=== PATIENT | female | born 1945 | race Caucasian/White ===

== ENCOUNTER 2019-05-19 14:57 | Inpatient (IN) ==
[2019-05-19] MEDS ORDERED: MOM Conc 10 ML UD.LIQ PO PRN (18:31)
[2019-05-19] MEDS ORDERED: Sennosides/Docusate Sodium TABLET PO PRN (18:31)
[2019-05-19] MEDS: Gabapentin 300 MG CAPSULE PO SCH (19:59)
[2019-05-19] MEDS: QUEtiapine Fumarate 100 MG TABLET PO SCH (19:59)
[2019-05-19] MEDS: *HR* LORazepam 0.5 MG TABLET PO PRN (19:59)
[2019-05-20 07:10] LABS: Alanine Aminotransferase 14 Units/L (7-52); Albumin 3.2 g/dL (3.5-5.7); Albumin/Globulin Ratio 1.2 (1.1-2.2); Alkaline Phosphatase 62 Units/L (34-104); Aspartate Amino Transferase 31 Units/L (13-39); BUN/Creatinine Ratio 22 (6-26); Bilirubin,Total 0.3 mg/dL (0.3-1.0); Blood Urea Nitrogen 20 mg/dL (8-23); Calcium 8.7 mg/dL (8.6-10.3); Carbon Dioxide 26 mEq/L (23-29); Chloride 105 mEq/L (98-107); Globulin 2.6 g/dL (2.4-3.5); Glucose 113 mg/dL (70-105); Osmolality,Calculated 297 (280-300); Potassium 3.6 mEq/L (3.5-5.1); Sodium 142 mEq/L (136-145); Total Protein 5.8 g/dL (6.4-8.9); eGFR For African Americans > 60 (> 60); eGFR For Non-African Americans > 60 (> 60)
[2019-05-20 07:22] LABS: Hematocrit 27.9 % (35.3-44.9); Hemoglobin 9.1 g/dL (11.5-15.4); Mean Corpuscular HGB Conc 32.6 g/dL (31.6-35.5); Mean Corpuscular Volume 88.9 fL (83.0-100.0); Mean Platelet Volume 10.5 fL (9.4-12.4); Platelet Count 143 K/mcL (140-400); Red Blood Count 3.14 M/mcL (3.82-4.97); Red Cell Distribution Width 13.2 % (11.5-14.5); White Blood Count 5.3 K/mcL (4.3-11.1)
[2019-05-20] MEDS: amLODIPine 5 MG TABLET PO SCH (08:33)
[2019-05-20] MEDS: Lisinopril 20 MG TABLET PO SCH (08:33)
[2019-05-20] MEDS: Gabapentin 300 MG CAPSULE PO SCH ×3 (08:34→20:40)
[2019-05-20] MEDS: Cholecalciferol (D-3) 1,000 UNIT (25MCG) TABLET PO SCH (08:34)
[2019-05-20] MEDS: Metoprolol XL (24 HR) Succ 50 MG TAB.ER.24H PO SCH (08:48)
[2019-05-20] MEDS ORDERED: Aspirin Enteric Coated 325 MG Tablet PO SCH (09:00)
[2019-05-20] MEDS: QUEtiapine Fumarate 100 MG TABLET PO SCH (20:39)
[2019-05-20] MEDS: *HR* LORazepam 0.5 MG TABLET PO PRN (20:39)
[2019-05-21] MEDS: *HR* Enoxaparin 40 MG/0.4 ML SYRINGE SQ SCH (06:31)
[2019-05-21] MEDS: Aspirin Enteric Coated 81 MG Tablet PO SCH (08:50)
[2019-05-21] MEDS: Metoprolol XL (24 HR) Succ 50 MG TAB.ER.24H PO SCH (08:50)
[2019-05-21] MEDS: Gabapentin 300 MG CAPSULE PO SCH ×3 (08:50→21:02)
[2019-05-21] MEDS: Cholecalciferol (D-3) 1,000 UNIT (25MCG) TABLET PO SCH (08:51)
[2019-05-21] MEDS: amLODIPine 5 MG TABLET PO SCH (08:51)
[2019-05-21] MEDS: Lisinopril 20 MG TABLET PO SCH (08:51)
[2019-05-21] MEDS: QUEtiapine Fumarate 100 MG TABLET PO SCH (21:02)
[2019-05-22] MEDS: *HR* Enoxaparin 40 MG/0.4 ML SYRINGE SQ SCH (05:21)
[2019-05-22] MEDS: Gabapentin 300 MG CAPSULE PO SCH ×4 (08:54→20:21)
[2019-05-22] MEDS: Metoprolol XL (24 HR) Succ 50 MG TAB.ER.24H PO SCH (08:54)
[2019-05-22] MEDS: Aspirin Enteric Coated 81 MG Tablet PO SCH (08:54)
[2019-05-22] MEDS: Cholecalciferol (D-3) 1,000 UNIT (25MCG) TABLET PO SCH (08:55)
[2019-05-22] MEDS: amLODIPine 5 MG TABLET PO SCH (09:57)
[2019-05-22] MEDS: Lisinopril 20 MG TABLET PO SCH (09:57)
[2019-05-23] MEDS: *HR* Enoxaparin 40 MG/0.4 ML SYRINGE SQ SCH (05:30)
[2019-05-23] MEDS: Aspirin Enteric Coated 81 MG Tablet PO SCH (08:51)
[2019-05-23] MEDS: amLODIPine 5 MG TABLET PO SCH (08:51)
[2019-05-23] MEDS: Cholecalciferol (D-3) 1,000 UNIT (25MCG) TABLET PO SCH (08:51)
[2019-05-23] MEDS: Lisinopril 20 MG TABLET PO SCH (08:52)
[2019-05-23] MEDS: Gabapentin 300 MG CAPSULE PO SCH ×3 (08:52→19:54)
[2019-05-23] MEDS: Metoprolol XL (24 HR) Succ 50 MG TAB.ER.24H PO SCH (08:52)
[2019-05-23] MEDS: *HR* LORazepam 0.5 MG TABLET PO PRN (14:10)
[2019-05-23 14:47] LABS: Bilirubin,Urine Negative (Negative); Blood,Urine Trace-intact (Negative); Clarity,Urine Clear (Clear); Color,Urine Yellow (Yellow); Glucose,Urine (UA) Normal (Normal); Ketones,Urine Negative (Negative); Leukocyte Esterase,Urine Negative (Negative); Nitrite,Urine Negative (Negative); Protein,Urine 100 mg/dL (Neg-Trace); Specific Gravity,Urine 1.025 (1.010-1.025); Urobilinogen,Urine Normal (Normal)
[2019-05-23 14:55] LABS: Squamous Epithelial Cell,Urine Few per lpf (None-Few); WBC,Urine 0-3 per hpf (0-3); Yeast,Urine Moderate per hpf (None Seen)
[2019-05-23] MEDS: QUEtiapine Fumarate 100 MG TABLET PO PRN (23:53)
[2019-05-24] MEDS: *HR* Enoxaparin 40 MG/0.4 ML SYRINGE SQ SCH (04:58)
[2019-05-24] MEDS: Metoprolol XL (24 HR) Succ 50 MG TAB.ER.24H PO SCH (09:26)
[2019-05-24] MEDS: Gabapentin 300 MG CAPSULE PO SCH ×3 (09:27→20:52)
[2019-05-24] MEDS: amLODIPine 5 MG TABLET PO SCH (09:28)
[2019-05-24] MEDS: Aspirin Enteric Coated 81 MG Tablet PO SCH (09:29)
[2019-05-24] MEDS: Cholecalciferol (D-3) 1,000 UNIT (25MCG) TABLET PO SCH (09:32)
[2019-05-24] MEDS: Lisinopril 20 MG TABLET PO SCH (09:33)
[2019-05-25] MEDS: QUEtiapine Fumarate 100 MG TABLET PO PRN ×2 (01:05→23:27)
[2019-05-25 02:18] LABS: Bilirubin,Urine Negative (Negative); Blood,Urine Negative (Negative); Clarity,Urine Clear (Clear); Color,Urine Yellow (Yellow); Glucose,Urine (UA) Normal (Normal); Ketones,Urine Negative (Negative); Leukocyte Esterase,Urine Negative (Negative); Nitrite,Urine Negative (Negative); PH,Urine 5.5 pH Units (5.0-8.0); Protein,Urine 30 mg/dL (Neg-Trace); Urobilinogen,Urine Normal (Normal)
[2019-05-25 02:27] LABS: Squamous Epithelial Cell,Urine Many per lpf (None-Few); Yeast,Urine Many per hpf (None Seen)
[2019-05-25] MEDS: *HR* Enoxaparin 40 MG/0.4 ML SYRINGE SQ SCH (05:28)
[2019-05-25] MEDS: Aspirin Enteric Coated 81 MG Tablet PO SCH (10:26)
[2019-05-25] MEDS: Gabapentin 300 MG CAPSULE PO SCH ×3 (10:26→20:18)
[2019-05-25] MEDS: amLODIPine 5 MG TABLET PO SCH (10:27)
[2019-05-25] MEDS: Lisinopril 20 MG TABLET PO SCH (10:28)
[2019-05-25] MEDS: Metoprolol XL (24 HR) Succ 50 MG TAB.ER.24H PO SCH (10:28)
[2019-05-25] MEDS: Cholecalciferol (D-3) 1,000 UNIT (25MCG) TABLET PO SCH (10:28)
[2019-05-25] MEDS ORDERED: Fluconazole 100 MG TABLET PO ONE (17:52)
[2019-05-25] MEDS: *HR* LORazepam 0.5 MG TABLET PO PRN (20:18)
[2019-05-26] MEDS: *HR* Enoxaparin 40 MG/0.4 ML SYRINGE SQ SCH (05:05)
[2019-05-26] MEDS: amLODIPine 5 MG TABLET PO SCH (07:51)
[2019-05-26] MEDS: Metoprolol XL (24 HR) Succ 50 MG TAB.ER.24H PO SCH ×2 (07:51→09:58)
[2019-05-26] MEDS: Lisinopril 20 MG TABLET PO SCH (07:52)
[2019-05-26] MEDS: Gabapentin 300 MG CAPSULE PO SCH ×3 (09:50→20:10)
[2019-05-26] MEDS: Aspirin Enteric Coated 81 MG Tablet PO SCH (09:50)
[2019-05-26] MEDS: Cholecalciferol (D-3) 1,000 UNIT (25MCG) TABLET PO SCH (09:50)
[2019-05-27] MEDS: *HR* Enoxaparin 40 MG/0.4 ML SYRINGE SQ SCH (06:46)
[2019-05-27] MEDS: amLODIPine 5 MG TABLET PO SCH (09:07)
[2019-05-27] MEDS: Lisinopril 20 MG TABLET PO SCH (09:07)
[2019-05-27] MEDS: Metoprolol XL (24 HR) Succ 50 MG TAB.ER.24H PO SCH (09:07)
[2019-05-27] MEDS: Aspirin Enteric Coated 81 MG Tablet PO SCH (09:07)
[2019-05-27] MEDS: Cholecalciferol (D-3) 1,000 UNIT (25MCG) TABLET PO SCH (09:08)
[2019-05-27] MEDS: Gabapentin 300 MG CAPSULE PO SCH ×3 (09:08→20:25)
[2019-05-27 12:40] LABS: Hematocrit 28.1 % (35.3-44.9); Hemoglobin 9.1 g/dL (11.5-15.4); Mean Corpuscular HGB Conc 32.4 g/dL (31.6-35.5); Mean Corpuscular Hemoglobin 28.5 pg (28.0-33.3); Mean Corpuscular Volume 88.1 fL (83.0-100.0); Mean Platelet Volume 10.4 fL (9.4-12.4); Platelet Count 360 K/mcL (140-400); Red Blood Count 3.19 M/mcL (3.82-4.97); Red Cell Distribution Width 13.5 % (11.5-14.5); White Blood Count 7.6 K/mcL (4.3-11.1)
[2019-05-27 12:52] LABS: BUN/Creatinine Ratio 14 (6-26); Blood Urea Nitrogen 12 mg/dL (8-23); Calcium 8.1 mg/dL (8.6-10.3); Carbon Dioxide 27 mEq/L (23-29); Chloride 97 mEq/L (98-107); Glucose 145 mg/dL (70-105); Osmolality,Calculated 282 (280-300); Potassium 3.1 mEq/L (3.5-5.1); Sodium 135 mEq/L (136-145); eGFR For African Americans > 60 (> 60); eGFR For Non-African Americans > 60 (> 60)
[2019-05-27] MEDS: *HR* OxyCODONE Immed Rel 15 MG TABLET PO PRN (20:32)
[2019-05-28] MEDS: *HR* Enoxaparin 40 MG/0.4 ML SYRINGE SQ SCH (05:26)
[2019-05-28 06:23] LABS: Hematocrit 27.5 % (35.3-44.9); Hemoglobin 8.7 g/dL (11.5-15.4); Mean Corpuscular HGB Conc 31.6 g/dL (31.6-35.5); Mean Corpuscular Hemoglobin 28.3 pg (28.0-33.3); Mean Corpuscular Volume 89.6 fL (83.0-100.0); Mean Platelet Volume 10.4 fL (9.4-12.4); Platelet Count 323 K/mcL (140-400); Red Blood Count 3.07 M/mcL (3.82-4.97); Red Cell Distribution Width 13.6 % (11.5-14.5); White Blood Count 6.4 K/mcL (4.3-11.1)
[2019-05-28 06:49] LABS: BUN/Creatinine Ratio 16 (6-26); Blood Urea Nitrogen 13 mg/dL (8-23); Calcium 8.1 mg/dL (8.6-10.3); Carbon Dioxide 29 mEq/L (23-29); Chloride 103 mEq/L (98-107); Glucose 107 mg/dL (70-105); Osmolality,Calculated 289 (280-300); Potassium 3.7 mEq/L (3.5-5.1); Sodium 139 mEq/L (136-145); eGFR For African Americans > 60 (> 60); eGFR For Non-African Americans > 60 (> 60)
[2019-05-28] MEDS: amLODIPine 5 MG TABLET PO SCH (09:05)
[2019-05-28] MEDS: Metoprolol XL (24 HR) Succ 50 MG TAB.ER.24H PO SCH (09:06)
[2019-05-28] MEDS: Cholecalciferol (D-3) 1,000 UNIT (25MCG) TABLET PO SCH (09:06)
[2019-05-28] MEDS: Lisinopril 20 MG TABLET PO SCH (09:06)
[2019-05-28] MEDS: Aspirin Enteric Coated 81 MG Tablet PO SCH (09:07)
[2019-05-28] MEDS: Gabapentin 300 MG CAPSULE PO SCH ×3 (09:07→20:08)
[2019-05-28] MEDS: *HR* LORazepam 0.5 MG TABLET PO PRN (13:39)
[2019-05-28] MEDS: *HR* OxyCODONE Immed Rel 15 MG TABLET PO PRN (20:08)
[2019-05-29] MEDS: *HR* Enoxaparin 40 MG/0.4 ML SYRINGE SQ SCH (05:43)
[2019-05-29] MEDS: Gabapentin 300 MG CAPSULE PO SCH ×3 (08:16→21:44)
[2019-05-29] MEDS: Metoprolol XL (24 HR) Succ 50 MG TAB.ER.24H PO SCH (08:16)
[2019-05-29] MEDS: Lisinopril 20 MG TABLET PO SCH (08:17)
[2019-05-29] MEDS: *HR* OxyCODONE Immed Rel 15 MG TABLET PO PRN (08:18)
[2019-05-29] MEDS: Aspirin Enteric Coated 81 MG Tablet PO SCH (08:19)
[2019-05-29] MEDS: amLODIPine 5 MG TABLET PO SCH (08:19)
[2019-05-29] MEDS: Cholecalciferol (D-3) 1,000 UNIT (25MCG) TABLET PO SCH (08:20)
[2019-05-29] MEDS ORDERED: Simethicone 80 MG TAB.CHEW PO ONE (20:06)
[2019-05-30] MEDS: QUEtiapine Fumarate 100 MG TABLET PO PRN ×2 (00:52→23:22)
[2019-05-30] MEDS: *HR* Enoxaparin 40 MG/0.4 ML SYRINGE SQ SCH (05:57)
[2019-05-30] MEDS: Gabapentin 300 MG CAPSULE PO SCH ×3 (08:38→21:39)
[2019-05-30] MEDS: Metoprolol XL (24 HR) Succ 50 MG TAB.ER.24H PO SCH (08:39)
[2019-05-30] MEDS: amLODIPine 5 MG TABLET PO SCH (08:39)
[2019-05-30] MEDS: Lisinopril 20 MG TABLET PO SCH (08:39)
[2019-05-30] MEDS: Aspirin Enteric Coated 81 MG Tablet PO SCH (08:39)
[2019-05-30] MEDS: Cholecalciferol (D-3) 1,000 UNIT (25MCG) TABLET PO SCH (08:39)
[2019-05-31] MEDS: *HR* Enoxaparin 40 MG/0.4 ML SYRINGE SQ SCH (05:53)
[2019-05-31] MEDS: Metoprolol XL (24 HR) Succ 50 MG TAB.ER.24H PO SCH (08:40)
[2019-05-31] MEDS: Aspirin Enteric Coated 81 MG Tablet PO SCH (08:40)
[2019-05-31] MEDS: Cholecalciferol (D-3) 1,000 UNIT (25MCG) TABLET PO SCH (08:40)
[2019-05-31] MEDS: Gabapentin 300 MG CAPSULE PO SCH ×3 (08:41→21:06)
[2019-05-31] MEDS: amLODIPine 5 MG TABLET PO SCH (08:41)
[2019-05-31] MEDS: Lisinopril 20 MG TABLET PO SCH (08:41)
[2019-06-01] MEDS: *HR* Enoxaparin 40 MG/0.4 ML SYRINGE SQ SCH (05:39)
[2019-06-01] MEDS: Metoprolol XL (24 HR) Succ 50 MG TAB.ER.24H PO SCH (09:09)
[2019-06-01] MEDS: Aspirin Enteric Coated 81 MG Tablet PO SCH (09:09)
[2019-06-01] MEDS: Lisinopril 20 MG TABLET PO SCH (09:09)
[2019-06-01] MEDS: amLODIPine 5 MG TABLET PO SCH (09:09)
[2019-06-01] MEDS: Cholecalciferol (D-3) 1,000 UNIT (25MCG) TABLET PO SCH (09:09)
[2019-06-01] MEDS: Gabapentin 300 MG CAPSULE PO SCH ×3 (09:09→20:27)
[2019-06-01] MEDS: QUEtiapine Fumarate 100 MG TABLET PO PRN (21:20)
[2019-06-02] MEDS: *HR* Enoxaparin 40 MG/0.4 ML SYRINGE SQ SCH (05:21)
[2019-06-02 06:38] LABS: Hematocrit 26.4 % (35.3-44.9); Hemoglobin 8.2 g/dL (11.5-15.4); Mean Corpuscular HGB Conc 31.1 g/dL (31.6-35.5); Mean Corpuscular Hemoglobin 27.4 pg (28.0-33.3); Mean Corpuscular Volume 88.3 fL (83.0-100.0); Mean Platelet Volume 9.8 fL (9.4-12.4); Platelet Count 302 K/mcL (140-400); Red Blood Count 2.99 M/mcL (3.82-4.97); Red Cell Distribution Width 14.2 % (11.5-14.5); White Blood Count 4.7 K/mcL (4.3-11.1)
[2019-06-02 06:56] LABS: BUN/Creatinine Ratio 12 (6-26); Blood Urea Nitrogen 12 mg/dL (8-23); Calcium 8.9 mg/dL (8.6-10.3); Carbon Dioxide 27 mEq/L (23-29); Chloride 102 mEq/L (98-107); Glucose 100 mg/dL (70-105); Osmolality,Calculated 282 (280-300); Potassium 4.2 mEq/L (3.5-5.1); Sodium 136 mEq/L (136-145); eGFR For African Americans > 60 (> 60); eGFR For Non-African Americans 53 (> 60)
[2019-06-02] MEDS: Metoprolol XL (24 HR) Succ 50 MG TAB.ER.24H PO SCH (07:36)
[2019-06-02] MEDS: Lisinopril 20 MG TABLET PO SCH (07:36)
[2019-06-02] MEDS: Gabapentin 300 MG CAPSULE PO SCH ×3 (08:39→20:51)
[2019-06-02] MEDS: Aspirin Enteric Coated 81 MG Tablet PO SCH (08:39)
[2019-06-02] MEDS: Cholecalciferol (D-3) 1,000 UNIT (25MCG) TABLET PO SCH (08:39)
[2019-06-02] MEDS: *HR* OxyCODONE Immed Rel 15 MG TABLET PO PRN (20:51)
[2019-06-03] MEDS: *HR* Enoxaparin 40 MG/0.4 ML SYRINGE SQ SCH (05:43)
[2019-06-03] MEDS: *HR* OxyCODONE Immed Rel 15 MG TABLET PO PRN (05:44)
[2019-06-03] MEDS: Aspirin Enteric Coated 81 MG Tablet PO SCH (08:40)
[2019-06-03] MEDS: Gabapentin 300 MG CAPSULE PO SCH ×3 (08:41→20:08)
[2019-06-03] MEDS: Cholecalciferol (D-3) 1,000 UNIT (25MCG) TABLET PO SCH (08:41)
[2019-06-03] MEDS: Metoprolol XL (24 HR) Succ 50 MG TAB.ER.24H PO SCH (08:41)
[2019-06-03] MEDS: Lisinopril 20 MG TABLET PO SCH (08:43)
[2019-06-04] MEDS: QUEtiapine Fumarate 100 MG TABLET PO PRN (02:52)
[2019-06-04] MEDS: *HR* Enoxaparin 40 MG/0.4 ML SYRINGE SQ SCH (06:25)
[2019-06-04] MEDS ORDERED: 0.9 % Sodium Chloride 500 ML IV ONE (07:37)
[2019-06-04] MEDS: Gabapentin 300 MG CAPSULE PO SCH ×3 (08:25→20:27)
[2019-06-04] MEDS: Aspirin Enteric Coated 81 MG Tablet PO SCH (08:25)
[2019-06-04] MEDS: Cholecalciferol (D-3) 1,000 UNIT (25MCG) TABLET PO SCH (08:26)
[2019-06-04] MEDS: Lisinopril 20 MG TABLET PO SCH (12:12)
[2019-06-04] MEDS ORDERED: 0.9 % Sodium Chloride 1,000 ML IVC SCH (14:00)
[2019-06-04] MEDS: Metoprolol XL (24 HR) Succ 50 MG TAB.ER.24H PO SCH (14:40)
[2019-06-05] MEDS: QUEtiapine Fumarate 100 MG TABLET PO PRN (04:11)
[2019-06-05] MEDS: *HR* Enoxaparin 40 MG/0.4 ML SYRINGE SQ SCH (05:43)
[2019-06-05] MEDS: Metoprolol XL (24 HR) Succ 50 MG TAB.ER.24H PO SCH (08:39)
[2019-06-05] MEDS: Aspirin Enteric Coated 81 MG Tablet PO SCH (08:39)
[2019-06-05] MEDS: Lisinopril 20 MG TABLET PO SCH (08:40)
[2019-06-05] MEDS: Gabapentin 300 MG CAPSULE PO SCH ×3 (08:40→21:18)
[2019-06-05] MEDS: Cholecalciferol (D-3) 1,000 UNIT (25MCG) TABLET PO SCH (08:40)
[2019-06-06] MEDS: *HR* Enoxaparin 40 MG/0.4 ML SYRINGE SQ SCH (06:39)
[2019-06-06] MEDS: Cholecalciferol (D-3) 1,000 UNIT (25MCG) TABLET PO SCH (08:26)
[2019-06-06] MEDS: Metoprolol XL (24 HR) Succ 50 MG TAB.ER.24H PO SCH (08:26)
[2019-06-06] MEDS: Lisinopril 20 MG TABLET PO SCH (08:27)
[2019-06-06] MEDS: Gabapentin 300 MG CAPSULE PO SCH ×3 (08:27→20:09)
[2019-06-06] MEDS: Aspirin Enteric Coated 81 MG Tablet PO SCH (08:27)
[2019-06-07] MEDS: *HR* Enoxaparin 40 MG/0.4 ML SYRINGE SQ SCH (06:00)
[2019-06-07 07:59] LABS: Hematocrit 24.9 % (35.3-44.9); Hemoglobin 7.8 g/dL (11.5-15.4); Mean Corpuscular HGB Conc 31.3 g/dL (31.6-35.5); Mean Corpuscular Hemoglobin 27.4 pg (28.0-33.3); Mean Corpuscular Volume 87.4 fL (83.0-100.0); Platelet Count 239 K/mcL (140-400); Red Blood Count 2.85 M/mcL (3.82-4.97); Red Cell Distribution Width 15.3 % (11.5-14.5); White Blood Count 4.7 K/mcL (4.3-11.1)
[2019-06-07 08:18] LABS: BUN/Creatinine Ratio 17 (6-26); Blood Urea Nitrogen 14 mg/dL (8-23); Calcium 8.5 mg/dL (8.6-10.3); Carbon Dioxide 22 mEq/L (23-29); Chloride 105 mEq/L (98-107); Glucose 161 mg/dL (70-105); Osmolality,Calculated 284 (280-300); Sodium 135 mEq/L (136-145); eGFR For African Americans > 60 (> 60); eGFR For Non-African Americans > 60 (> 60)
[2019-06-07] MEDS: Metoprolol XL (24 HR) Succ 50 MG TAB.ER.24H PO SCH (09:29)
[2019-06-07] MEDS: Aspirin Enteric Coated 81 MG Tablet PO SCH (09:29)
[2019-06-07] MEDS: Gabapentin 300 MG CAPSULE PO SCH ×3 (09:29→20:58)
[2019-06-07] MEDS: Cholecalciferol (D-3) 1,000 UNIT (25MCG) TABLET PO SCH (09:29)
[2019-06-07] MEDS: QUEtiapine Fumarate 100 MG TABLET PO PRN (20:58)
[2019-06-08] MEDS: *HR* Enoxaparin 40 MG/0.4 ML SYRINGE SQ SCH (05:23)
[2019-06-08] MEDS: Cholecalciferol (D-3) 1,000 UNIT (25MCG) TABLET PO SCH (09:51)
[2019-06-08] MEDS: Gabapentin 300 MG CAPSULE PO SCH ×3 (09:51→20:12)
[2019-06-08] MEDS: Metoprolol XL (24 HR) Succ 50 MG TAB.ER.24H PO SCH (09:51)
[2019-06-08] MEDS: Aspirin Enteric Coated 81 MG Tablet PO SCH (09:51)
[2019-06-08 10:16] LABS: Hematocrit 27.4 % (35.3-44.9); Hemoglobin 8.5 g/dL (11.5-15.4); Mean Corpuscular Hemoglobin 27.8 pg (28.0-33.3); Mean Corpuscular Volume 89.5 fL (83.0-100.0); Mean Platelet Volume 10.1 fL (9.4-12.4); Platelet Count 263 K/mcL (140-400); Red Blood Count 3.06 M/mcL (3.82-4.97); Red Cell Distribution Width 15.5 % (11.5-14.5); White Blood Count 4.8 K/mcL (4.3-11.1)
[2019-06-08 10:56] LABS: BUN/Creatinine Ratio 13 (6-26); Blood Urea Nitrogen 13 mg/dL (8-23); Calcium 9.1 mg/dL (8.6-10.3); Carbon Dioxide 23 mEq/L (23-29); Chloride 106 mEq/L (98-107); Glucose 267 mg/dL (70-105); Osmolality,Calculated 295 (280-300); Potassium 4.7 mEq/L (3.5-5.1); Sodium 138 mEq/L (136-145); eGFR For African Americans > 60 (> 60); eGFR For Non-African Americans 57 (> 60)
[2019-06-08] MEDS: QUEtiapine Fumarate 100 MG TABLET PO PRN (20:12)
[2019-06-09] MEDS: *HR* Enoxaparin 40 MG/0.4 ML SYRINGE SQ SCH (05:23)
[2019-06-09 06:24] LABS: Hematocrit 22.9 % (35.3-44.9); Hemoglobin 7.5 g/dL (11.5-15.4); Mean Corpuscular HGB Conc 32.8 g/dL (31.6-35.5); Mean Corpuscular Hemoglobin 29.8 pg (28.0-33.3); Mean Corpuscular Volume 90.9 fL (83.0-100.0); Mean Platelet Volume 10.5 fL (9.4-12.4); Platelet Count 239 K/mcL (140-400); Red Blood Count 2.52 M/mcL (3.82-4.97); Red Cell Distribution Width 15.1 % (11.5-14.5); White Blood Count 4.7 K/mcL (4.3-11.1)
[2019-06-09] MEDS: Aspirin Enteric Coated 81 MG Tablet PO SCH (09:02)
[2019-06-09] MEDS: Gabapentin 300 MG CAPSULE PO SCH ×3 (09:02→20:42)
[2019-06-09] MEDS: Metoprolol XL (24 HR) Succ 50 MG TAB.ER.24H PO SCH (09:03)
[2019-06-09] MEDS: Cholecalciferol (D-3) 1,000 UNIT (25MCG) TABLET PO SCH (09:03)
[2019-06-09 11:41] LABS: % Iron Saturation 11 % (15-50); Iron 33 mcg/dL (50-170); Transferrin 205 mg/dL (203-362)
[2019-06-09] MEDS: QUEtiapine Fumarate 100 MG TABLET PO PRN (20:42)
[2019-06-10] MEDS: *HR* Enoxaparin 40 MG/0.4 ML SYRINGE SQ SCH (06:21)
[2019-06-10 10:14] VITALS: BP 100/56
[2019-06-10] MEDS: Metoprolol XL (24 HR) Succ 50 MG TAB.ER.24H PO SCH (10:23)
[2019-06-10] MEDS: Aspirin Enteric Coated 81 MG Tablet PO SCH (10:23)
[2019-06-10] MEDS: Gabapentin 300 MG CAPSULE PO SCH (10:23)
[2019-06-10] MEDS: Cholecalciferol (D-3) 1,000 UNIT (25MCG) TABLET PO SCH (10:23)
[2019-06-10 10:42] LABS: Hematocrit 24.7 % (35.3-44.9); Hemoglobin 7.8 g/dL (11.5-15.4); Mean Corpuscular HGB Conc 31.6 g/dL (31.6-35.5); Mean Corpuscular Hemoglobin 28.3 pg (28.0-33.3); Mean Corpuscular Volume 89.5 fL (83.0-100.0); Mean Platelet Volume 10.5 fL (9.4-12.4); Platelet Count 254 K/mcL (140-400); Red Blood Count 2.76 M/mcL (3.82-4.97); Red Cell Distribution Width 15.7 % (11.5-14.5); White Blood Count 5.7 K/mcL (4.3-11.1)
== END 2019-06-10 13:00 | disposition home health service (06) | DRG 560 ==
LOC: INPPIK 18:39
PROVIDERS: ADMIT Family Medicine; ATTEND Family Medicine

== ENCOUNTER 2021-07-26 06:16 | Inpatient (IN) ==
[2021-07-26 07:29] LABS: ABG Base Excess -1 mEq/L (-2 to 3); ABG HCO3 23 mEq/L (21-27); ABG Oxygen Saturation 92 % (95-98); ABG PCO2 33 mmHg (35-45); ABG PH 7.45 pH Units (7.32-7.45); ABG PO2 59 mmHg (85-104); ABG TCO2 24 mEq/L (20-26)
[2021-07-26 07:49] LABS: Basophils # 0.1 K/mcL (0.0-0.2); Basophils % 0.7 %; Eosinophils # 0.1 K/mcL (0.0-0.6); Eosinophils % 1.1 %; Hematocrit 39.3 % (35.3-44.9); Hemoglobin 12.7 g/dL (11.5-15.4); Immature Granulocytes % 1.3 % (0-4); Lymphocytes # 2.9 K/mcL (0.6-4.6); Mean Corpuscular HGB Conc 32.3 g/dL (31.6-35.5); Mean Corpuscular Hemoglobin 27.5 pg (28.0-33.3); Mean Corpuscular Volume 85.2 fL (83.0-100.0); Mean Platelet Volume 10.2 fL (9.4-12.4); Monocytes # 0.6 K/mcL (0.0-1.3); Monocytes % 7.1 %; Platelet Count 336 K/mcL (140-400); Red Blood Count 4.61 M/mcL (3.82-4.97); Red Cell Distribution Width 13.7 % (11.5-14.5); Segmented Neutrophils % 56.8 %; White Blood Count 8.8 K/mcL (4.3-11.1)
[2021-07-26 07:56] LABS: INR 1.1; Prothrombin Time 11.8 Seconds (9.4-12.1)
[2021-07-26 07:59] LABS: Activated Partial Thrombo Time 45.8 Seconds (26.0-36.0)
[2021-07-26 08:07] LABS: Troponin I < 0.03 ng/mL (< 0.04)
[2021-07-26 08:08] LABS: Alanine Aminotransferase 22 Units/L (7-52); Albumin 4.2 g/dL (3.5-5.7); Albumin/Globulin Ratio 1.2 (1.1-2.2); Alkaline Phosphatase 88 Units/L (34-104); Aspartate Amino Transferase 19 Units/L (13-39); BUN/Creatinine Ratio 22 (6-26); Bilirubin,Direct 0.1 mg/dL (0.0-0.2); Bilirubin,Indirect 0.4 mg/dL (0.0-1.0); Bilirubin,Total 0.5 mg/dL (0.3-1.0); Blood Urea Nitrogen 19 mg/dL (8-23); Calcium 9.9 mg/dL (8.6-10.3); Carbon Dioxide 24 mEq/L (23-29); Chloride 103 mEq/L (98-107); Ethanol < 10 mg/dL (Less than 10); Globulin 3.6 g/dL (2.4-3.5); Glucose 86 mg/dL (70-105); Osmolality,Calculated 288 (280-300); Potassium 3.8 mEq/L (3.5-5.1); Sodium 138 mEq/L (136-145); Total Protein 7.8 g/dL (6.4-8.9); eGFR For African Americans > 60 (> 60); eGFR For Non-African Americans > 60 (> 60)
[2021-07-26 08:09] LABS: Bilirubin,Urine Negative (Negative); Blood,Urine Trace-intact (Negative); Clarity,Urine Slightly Cloudy (Clear); Glucose,Urine (UA) Normal (Normal); Ketones,Urine Negative (Negative); Leukocyte Esterase,Urine Negative (Negative); Nitrite,Urine Positive (Negative); Protein,Urine Negative (Neg-Trace); Specific Gravity,Urine 1.015 (1.010-1.025); Urobilinogen,Urine Normal (Normal)
[2021-07-26 08:10] LABS: Color,Urine Light Yellow (Yellow)
[2021-07-26 08:15] LABS: Bacteria,Urine Many per hpf (None-Few); RBC,Urine 0-3 per hpf (0-3); Renal Epithelial Cells,Urine Few per hpf (None-Few); Squamous Epithelial Cell,Urine None Seen per hpf (None-Few); WBC,Urine 0-3 per hpf (0-3)
[2021-07-26 08:22] LABS: Amphetamine Screen,Urine Negative ng/mL (Cutoff=1000); Barbiturate Screen,Urine Negative ng/mL (Cutoff=200); Benzodiazepines Screen,Urine Negative ng/mL (Cutoff=200); Cannabinoid Screen,Urine Negative ng/mL (Cutoff = 50); Cocaine Screen,Urine Negative ng/mL (Cutoff= 300); Opiate Screen,Urine Negative ng/mL (Cutoff=300); Phencyclidine Screen,Urine Negative ng/mL (Cutoff=25)
[2021-07-26] MEDS ORDERED: cefTRIAXone 1,000 MG in 0.9 % Sodium Chloride 10 ML IVP ONE (08:42)
[2021-07-26] MEDS ORDERED: Acetaminophen 325 MG TABLET PO PRN (08:52)
[2021-07-26] MEDS ORDERED: Ondansetron 4 MG/2 ML VIAL IVP PRN (08:52)
[2021-07-26] MEDS ORDERED: Naloxone 0.4 MG/ML INJ IVP PRN (08:52)
[2021-07-26] MEDS ORDERED: 0.9 % Sodium Chloride w KCl 20 MEQ/1,000 ML MLS IVC SCH (09:00)
[2021-07-26] MEDS ORDERED: MOM Conc 10 ML UD.LIQ PO PRN (11:18)
[2021-07-26] MEDS ORDERED: Sennosides/Docusate Sodium TABLET PO PRN (11:18)
[2021-07-26] MEDS ORDERED: D5% in Water 1,000 ML IVC PRN (11:31)
[2021-07-26] MEDS ORDERED: *HR* Dextrose 50 % in Water (Syg) 50 ML SYRINGE IVP PRN (11:31)
[2021-07-26] MEDS ORDERED: Dextrose 4 GM Chewable Tablets PO PRN ×2 (11:31)
[2021-07-26] MEDS: Baclofen 10 MG TABLET PO SCH ×2 (16:40→20:19)
[2021-07-26] MEDS: Gabapentin 300 MG CAPSULE PO SCH ×2 (16:40→20:19)
[2021-07-26] MEDS: Insulin LISPRO 300 UNITS/3 ML VIAL SUBQ SCH (16:40)
[2021-07-26] MEDS: QUEtiapine Fumarate 100 MG TABLET PO SCH (20:19)
[2021-07-26] MEDS: *HR* LORazepam 0.5 MG TABLET PO PRN (20:23)
[2021-07-27 06:54] LABS: Hemoglobin 12.2 g/dL (11.5-15.4); Mean Corpuscular HGB Conc 32.1 g/dL (31.6-35.5); Mean Corpuscular Hemoglobin 27.5 pg (28.0-33.3); Mean Corpuscular Volume 85.8 fL (83.0-100.0); Mean Platelet Volume 10.1 fL (9.4-12.4); Platelet Count 293 K/mcL (140-400); Red Blood Count 4.43 M/mcL (3.82-4.97); Red Cell Distribution Width 13.5 % (11.5-14.5); White Blood Count 8.9 K/mcL (4.3-11.1)
[2021-07-27 07:26] LABS: BUN/Creatinine Ratio 22 (6-26); Blood Urea Nitrogen 20 mg/dL (8-23); Calcium 9.4 mg/dL (8.6-10.3); Carbon Dioxide 23 mEq/L (23-29); Chloride 106 mEq/L (98-107); Glucose 111 mg/dL (70-105); Osmolality,Calculated 291 (280-300); Potassium 4.1 mEq/L (3.5-5.1); Sodium 139 mEq/L (136-145); eGFR For African Americans > 60 (> 60); eGFR For Non-African Americans 60 (> 60)
[2021-07-27] MEDS: Insulin LISPRO 300 UNITS/3 ML VIAL SUBQ SCH ×3 (07:42→16:30)
[2021-07-27] MEDS: Gabapentin 300 MG CAPSULE PO SCH ×3 (09:04→20:33)
[2021-07-27] MEDS: predniSONE 20 MG TABLET PO SCH (09:04)
[2021-07-27] MEDS: Metoprolol XL (24 HR) Succ 50 MG TAB.ER.24H PO SCH (09:04)
[2021-07-27] MEDS: *HR* LORazepam 0.5 MG TABLET PO PRN (09:04)
[2021-07-27] MEDS: amLODIPine 5 MG TABLET PO SCH (09:05)
[2021-07-27] MEDS: lisinopriL 20 MG TABLET PO SCH (09:05)
[2021-07-27] MEDS: cefTRIAXone 2,000 MG in 0.9 % Sodium Chloride Mini Bag 100 ML IVPB SCH (09:05)
[2021-07-27] MEDS: Baclofen 10 MG TABLET PO SCH ×3 (09:05→20:38)
[2021-07-27] MEDS ORDERED: CefTRIAXone 2,000 MG VIAL ONE (18:53)
[2021-07-27] MEDS: QUEtiapine Fumarate 100 MG TABLET PO SCH (20:33)
[2021-07-28 05:24] VITALS: RESP 18
[2021-07-28] MEDS ORDERED: *HR* Enoxaparin 40 MG/0.4 ML SYRINGE SQ SCH (06:00)
[2021-07-28 07:04] VITALS: BP 128/67; PULSE 93; TEMP 98.3; O2SAT 92
[2021-07-28] MEDS: amLODIPine 5 MG TABLET PO SCH (07:44)
[2021-07-28] MEDS: Baclofen 10 MG TABLET PO SCH (07:45)
[2021-07-28] MEDS: lisinopriL 20 MG TABLET PO SCH (07:45)
[2021-07-28] MEDS: *HR* LORazepam 0.5 MG TABLET PO PRN (07:45)
[2021-07-28] MEDS: cefTRIAXone 2,000 MG in 0.9 % Sodium Chloride Mini Bag 100 ML IVPB SCH (07:45)
[2021-07-28] MEDS: Metoprolol XL (24 HR) Succ 50 MG TAB.ER.24H PO SCH (07:45)
[2021-07-28] MEDS: predniSONE 20 MG TABLET PO SCH (07:45)
[2021-07-28] MEDS: Gabapentin 300 MG CAPSULE PO SCH (07:45)
[2021-07-28] MEDS: Insulin LISPRO 300 UNITS/3 ML VIAL SUBQ SCH (07:46)
== END 2021-07-28 10:34 | disposition home health service (06) | DRG 689 ==
LOC: INPPIK 06:16 → EMEROOPIK 06:16 → INPPIK 10:37
PROVIDERS: ADMIT Internal Medicine; ATTEND Internal Medicine

== ENCOUNTER 2021-08-04 21:40 | Inpatient (IN) ==
[2021-08-04] MEDS: *HR* Dextrose 50 % in Water (Syg) 50 ML SYRINGE IVP ONE (21:59)
[2021-08-04 22:03] LABS: Basophils # 0.1 K/mcL (0.0-0.2); Basophils % 0.5 %; Eosinophils % 0.3 %; Hematocrit 42.2 % (35.3-44.9); Hemoglobin 13.5 g/dL (11.5-15.4); Immature Granulocytes % 0.5 % (0-4); Lymphocytes # 1.8 K/mcL (0.6-4.6); Lymphocytes % 14.3 %; Mean Corpuscular Hemoglobin 27.5 pg (28.0-33.3); Mean Corpuscular Volume 85.9 fL (83.0-100.0); Mean Platelet Volume 11.2 fL (9.4-12.4); Monocytes # 0.4 K/mcL (0.0-1.3); Monocytes % 3.5 %; Platelet Count 338 K/mcL (140-400); Red Blood Count 4.91 M/mcL (3.82-4.97); Red Cell Distribution Width 13.9 % (11.5-14.5); Segmented Neutrophils % 80.9 %; White Blood Count 12.4 K/mcL (4.3-11.1)
[2021-08-04 22:11] LABS: Prothrombin Time 11.1 Seconds (9.4-12.1)
[2021-08-04 22:14] LABS: Activated Partial Thrombo Time 41.6 Seconds (26.0-36.0)
[2021-08-04 22:16] LABS: VBG HCO3 23 mEq/L (21-27); VBG PCO2 36 mmHg (41-51); VBG PO2 43 mmHg (25-50)
[2021-08-04 22:19] LABS: Alanine Aminotransferase 25 Units/L (7-52); Albumin 4.6 g/dL (3.5-5.7); Albumin/Globulin Ratio 1.4 (1.1-2.2); Alkaline Phosphatase 79 Units/L (34-104); Amylase 76 Units/L (29-103); Aspartate Amino Transferase 25 Units/L (13-39); BUN/Creatinine Ratio 23 (6-26); Bilirubin,Total 0.4 mg/dL (0.3-1.0); Blood Urea Nitrogen 30 mg/dL (8-23); Calcium 10.3 mg/dL (8.6-10.3); Carbon Dioxide 25 mEq/L (23-29); Chloride 102 mEq/L (98-107); Creatine Kinase 60 Units/L (30-223); Ethanol < 10 mg/dL (Less than 10); Globulin 3.4 g/dL (2.4-3.5); Glucose 62 mg/dL (70-105); Lipase 219 Units/L (11-82); Magnesium 1.8 mg/dL (1.6-2.6); Osmolality,Calculated 290 (280-300); Phosphorous 2.9 mg/dL (2.7-4.5); Potassium 4.6 mEq/L (3.5-5.1); Sodium 138 mEq/L (136-145); eGFR For African Americans 48 (> 60); eGFR For Non-African Americans 40 (> 60)
[2021-08-04] MEDS ORDERED: Isovue-370 500 ML BOTTLE IVP ONE (23:18)
[2021-08-04] MEDS ORDERED: 0.9 % Sodium Chloride 1,000 ML IV ONE (23:18)
[2021-08-05 00:12] LABS: Bilirubin,Urine Negative (Negative); Blood,Urine Trace-lysed (Negative); Clarity,Urine Clear (Clear); Color,Urine Yellow (Yellow); Glucose,Urine (UA) 250 mg/dL (Normal); Ketones,Urine Negative (Negative); Leukocyte Esterase,Urine Negative (Negative); Nitrite,Urine Negative (Negative); Protein,Urine 30 mg/dL (Neg-Trace); Specific Gravity,Urine 1.015 (1.010-1.025); Urobilinogen,Urine Normal (Normal)
[2021-08-05 00:19] LABS: WBC,Urine 0-3 per hpf (0-3)
[2021-08-05 00:20] LABS: Bacteria,Urine Many per hpf (None-Few); Budding Yeast,Urine Few per hpf (None Seen); Squamous Epithelial Cell,Urine None Seen per hpf (None-Few); Transitional Epi Cells,Urine Few per hpf (None-Few)
[2021-08-05 00:23] LABS: Amphetamine Screen,Urine Negative ng/mL (Cutoff=1000); Barbiturate Screen,Urine Negative ng/mL (Cutoff=200); Benzodiazepines Screen,Urine Negative ng/mL (Cutoff=200); Cannabinoid Screen,Urine Negative ng/mL (Cutoff = 50); Cocaine Screen,Urine Negative ng/mL (Cutoff= 300); Opiate Screen,Urine Negative ng/mL (Cutoff=300); Phencyclidine Screen,Urine Negative ng/mL (Cutoff=25)
[2021-08-05] MEDS ORDERED: 0.9 % Sodium Chloride 1,000 ML IV ONE (00:51)
[2021-08-05] MEDS ORDERED: *HR* Dextrose 50 % in Water (Vial) 50 ML VIAL IVP PRN (06:33)
[2021-08-05] MEDS ORDERED: *HR* Dextrose 50 % in Water (Syg) 50 ML SYRINGE ONE (06:33)
[2021-08-05] MEDS: *HR* Dextrose 50 % in Water (Syg) 50 ML SYRINGE IVP ONE (06:40)
[2021-08-05] MEDS ORDERED: Naloxone 0.4 MG/ML INJ IVP PRN (11:36)
[2021-08-05] MEDS ORDERED: MOM Conc 10 ML UD.LIQ PO PRN (11:57)
[2021-08-05] MEDS ORDERED: Sennosides/Docusate Sodium TABLET PO PRN (11:58)
[2021-08-05] MEDS: Metoprolol XL (24 HR) Succ 50 MG TAB.ER.24H PO SCH (12:12)
[2021-08-05] MEDS: Baclofen 10 MG TABLET PO SCH ×2 (14:33→21:49)
[2021-08-05 17:10] LABS: Estimated Average Glucose 134 mg/dl; Hemoglobin A1C 6.3 %
[2021-08-05] MEDS: *HR* Heparin 5,000 UNIT/ML VIAL SQ SCH (17:10)
[2021-08-05] MEDS: QUEtiapine Fumarate 100 MG TABLET PO SCH (21:49)
[2021-08-05] MEDS: Gabapentin 300 MG CAPSULE PO SCH (21:50)
[2021-08-05] MEDS: *HR* LORazepam 0.5 MG TABLET PO PRN (21:50)
[2021-08-06] MEDS: *HR* Heparin 5,000 UNIT/ML VIAL SQ SCH ×2 (05:34→17:58)
[2021-08-06 07:11] LABS: Basophils # 0.1 K/mcL (0.0-0.2); Basophils % 0.6 %; Eosinophils # 0.1 K/mcL (0.0-0.6); Eosinophils % 0.9 %; Hematocrit 35.1 % (35.3-44.9); Immature Granulocytes % 0.4 % (0-4); Lymphocytes # 3.2 K/mcL (0.6-4.6); Mean Corpuscular HGB Conc 31.3 g/dL (31.6-35.5); Mean Corpuscular Hemoglobin 27.8 pg (28.0-33.3); Mean Corpuscular Volume 88.9 fL (83.0-100.0); Mean Platelet Volume 11.3 fL (9.4-12.4); Monocytes # 0.8 K/mcL (0.0-1.3); Neutrophils # 4.4 K/mcL (1.6-8.9); Platelet Count 235 K/mcL (140-400); Red Blood Count 3.95 M/mcL (3.82-4.97); Red Cell Distribution Width 14.3 % (11.5-14.5); Segmented Neutrophils % 51.1 %; White Blood Count 8.5 K/mcL (4.3-11.1)
[2021-08-06 07:35] LABS: Calcium 9.4 mg/dL (8.6-10.3); Magnesium 1.5 mg/dL (1.6-2.6); Potassium 4.3 mEq/L (3.5-5.1)
[2021-08-06] MEDS: Baclofen 10 MG TABLET PO SCH ×3 (10:34→20:40)
[2021-08-06] MEDS: amLODIPine 5 MG TABLET PO SCH (10:34)
[2021-08-06] MEDS: Cholecalciferol (D-3) 1,000 UNIT (25MCG) TABLET PO SCH (10:34)
[2021-08-06] MEDS: Metoprolol XL (24 HR) Succ 50 MG TAB.ER.24H PO SCH (10:34)
[2021-08-06] MEDS: Gabapentin 300 MG CAPSULE PO SCH ×2 (10:34→20:40)
[2021-08-06] MEDS: *HR* LORazepam 0.5 MG TABLET PO PRN (12:43)
[2021-08-06] MEDS: QUEtiapine Fumarate 100 MG TABLET PO SCH (20:40)
[2021-08-06] MEDS: Magnesium Oxide 400 MG TABLET PO SCH (20:40)
[2021-08-07] MEDS ORDERED: Ringers Solution, Lactated 1,000 ML IVC ONE (01:15)
[2021-08-07 01:43] LABS: ABG Base Excess -2 mEq/L (-2 to 3); ABG HCO3 23 mEq/L (21-27); ABG Oxygen Saturation 87 % (95-98); ABG PCO2 40 mmHg (35-45); ABG PH 7.37 pH Units (7.32-7.45); ABG PO2 55 mmHg (85-104); ABG TCO2 24 mEq/L (20-26)
[2021-08-07] MEDS: *HR* Heparin 5,000 UNIT/ML VIAL SQ SCH ×2 (07:23→17:12)
[2021-08-07 08:55] LABS: Basophils # 0.1 K/mcL (0.0-0.2); Basophils % 0.8 %; Eosinophils # 0.1 K/mcL (0.0-0.6); Eosinophils % 1.6 %; Hematocrit 35.5 % (35.3-44.9); Hemoglobin 10.7 g/dL (11.5-15.4); Immature Granulocytes % 0.4 % (0-4); Lymphocytes # 2.9 K/mcL (0.6-4.6); Lymphocytes % 37.5 %; Mean Corpuscular HGB Conc 30.1 g/dL (31.6-35.5); Mean Corpuscular Hemoglobin 27.2 pg (28.0-33.3); Mean Corpuscular Volume 90.1 fL (83.0-100.0); Mean Platelet Volume 11.1 fL (9.4-12.4); Monocytes # 0.7 K/mcL (0.0-1.3); Monocytes % 9.2 %; Neutrophils # 3.9 K/mcL (1.6-8.9); Platelet Count 194 K/mcL (140-400); Red Blood Count 3.94 M/mcL (3.82-4.97); Segmented Neutrophils % 50.5 %; White Blood Count 7.6 K/mcL (4.3-11.1)
[2021-08-07 09:12] LABS: Calcium 9.4 mg/dL (8.6-10.3); Potassium 4.5 mEq/L (3.5-5.1)
[2021-08-07] MEDS ORDERED: Fosfomycin Tromethamine 3 GM Packet PO ONE (10:15)
[2021-08-07] MEDS: amLODIPine 5 MG TABLET PO SCH (10:55)
[2021-08-07] MEDS: Metoprolol XL (24 HR) Succ 50 MG TAB.ER.24H PO SCH (10:55)
[2021-08-07] MEDS: Magnesium Oxide 400 MG TABLET PO SCH ×2 (10:55→20:04)
[2021-08-07] MEDS: Baclofen 10 MG TABLET PO SCH ×3 (10:56→20:04)
[2021-08-07] MEDS: Cholecalciferol (D-3) 1,000 UNIT (25MCG) TABLET PO SCH (10:56)
[2021-08-07] MEDS: Gabapentin 300 MG CAPSULE PO SCH ×2 (12:46→20:04)
[2021-08-07] MEDS ORDERED: Moderna Covid-19 Vaccine 100MCG/0.5mL IM ONE (14:25)
[2021-08-07 16:54] LABS: Influenza A PCR Negative (Negative); Influenza B PCR Negative (Negative); Resp. Syncytial Virus PCR Negative (Negative)
[2021-08-07 17:07] LABS: SARS-CoV-2 by PCR (In House) Negative (Negative)
[2021-08-07] MEDS ORDERED: QUEtiapine Fumarate 100 MG TABLET PO SCH ×2 (21:00)
[2021-08-08] MEDS ORDERED: Moderna Covid-19 Vaccine 100MCG/0.5mL IM ONE (05:00)
[2021-08-08] MEDS: *HR* Heparin 5,000 UNIT/ML VIAL SQ SCH (05:03)
[2021-08-08 07:25] VITALS: BP 116/75; PULSE 71; RESP 19; TEMP 98.2; O2SAT 96
[2021-08-08 07:25] LABS: Basophils # 0.1 K/mcL (0.0-0.2); Basophils % 0.7 %; Eosinophils # 0.2 K/mcL (0.0-0.6); Eosinophils % 2.8 %; Hematocrit 32.9 % (35.3-44.9); Hemoglobin 9.9 g/dL (11.5-15.4); Immature Granulocytes % 0.5 % (0-4); Lymphocytes # 2.6 K/mcL (0.6-4.6); Lymphocytes % 31.1 %; Mean Corpuscular HGB Conc 30.1 g/dL (31.6-35.5); Mean Corpuscular Hemoglobin 27.1 pg (28.0-33.3); Mean Corpuscular Volume 90.1 fL (83.0-100.0); Monocytes # 0.5 K/mcL (0.0-1.3); Monocytes % 6.3 %; Platelet Count 206 K/mcL (140-400); Red Blood Count 3.65 M/mcL (3.82-4.97); Red Cell Distribution Width 13.9 % (11.5-14.5); Segmented Neutrophils % 58.6 %; White Blood Count 8.5 K/mcL (4.3-11.1)
[2021-08-08 07:54] LABS: BUN/Creatinine Ratio 21 (6-26); Blood Urea Nitrogen 21 mg/dL (8-23); Calcium 9.2 mg/dL (8.6-10.3); Carbon Dioxide 20 mEq/L (23-29); Chloride 106 mEq/L (98-107); Glucose 83 mg/dL (70-105); Osmolality,Calculated 286 (280-300); Potassium 4.1 mEq/L (3.5-5.1); Sodium 137 mEq/L (136-145); eGFR For African Americans > 60 (> 60); eGFR For Non-African Americans 55 (> 60)
[2021-08-08] MEDS: Magnesium Oxide 400 MG TABLET PO SCH (08:11)
[2021-08-08] MEDS: Metoprolol XL (24 HR) Succ 50 MG TAB.ER.24H PO SCH (08:11)
[2021-08-08] MEDS: amLODIPine 5 MG TABLET PO SCH (08:11)
[2021-08-08] MEDS: Gabapentin 300 MG CAPSULE PO SCH (08:11)
[2021-08-08] MEDS: Baclofen 10 MG TABLET PO SCH (08:12)
[2021-08-08] MEDS: Cholecalciferol (D-3) 1,000 UNIT (25MCG) TABLET PO SCH (08:12)
== END 2021-08-08 10:05 | DRG 637 ==
LOC: INPPIK 21:40 → EMEROOPIK 21:40 → INPPIK 08-05 07:30
PROVIDERS: ADMIT Internal Medicine; ATTEND Family Medicine

== ENCOUNTER 2021-09-06 12:24 | Inpatient (IN) ==
[2021-09-06 12:53] LABS: Basophils % 0.2 %; Eosinophils % 0.1 %; Hematocrit 35.8 % (35.3-44.9); Hemoglobin 11.3 g/dL (11.5-15.4); Immature Granulocytes % 0.4 % (0-4); Lymphocytes # 0.9 K/mcL (0.6-4.6); Lymphocytes % 5.7 %; Mean Corpuscular HGB Conc 31.6 g/dL (31.6-35.5); Mean Corpuscular Hemoglobin 26.9 pg (28.0-33.3); Mean Corpuscular Volume 85.2 fL (83.0-100.0); Mean Platelet Volume 12.2 fL (9.4-12.4); Monocytes # 0.7 K/mcL (0.0-1.3); Monocytes % 4.2 %; Neutrophils # 14.6 K/mcL (1.6-8.9); Platelet Count 271 K/mcL (140-400); Red Cell Distribution Width 13.9 % (11.5-14.5); Segmented Neutrophils % 89.4 %; White Blood Count 16.3 K/mcL (4.3-11.1)
[2021-09-06 12:54] LABS: ABG Base Excess 4 mEq/L (-2 to 3); ABG HCO3 27 mEq/L (21-27); ABG Oxygen Saturation 91 % (95-98); ABG PCO2 33 mmHg (35-45); ABG PH 7.52 pH Units (7.32-7.45); ABG PO2 53 mmHg (85-104); ABG TCO2 28 mEq/L (20-26)
[2021-09-06 13:11] LABS: Calcium 9.7 mg/dL (8.6-10.3); Potassium 3.6 mEq/L (3.5-5.1)
[2021-09-06 13:12] LABS: Alanine Aminotransferase 21 Units/L (7-52); Albumin/Globulin Ratio 1.2 (1.1-2.2); Alkaline Phosphatase 110 Units/L (34-104); Aspartate Amino Transferase 15 Units/L (13-39); Bilirubin,Direct 0.2 mg/dL (0.0-0.2); Bilirubin,Indirect 0.4 mg/dL (0.0-1.0); Bilirubin,Total 0.6 mg/dL (0.3-1.0); Ethanol < 10 mg/dL (Less than 10); Globulin 3.3 g/dL (2.4-3.5); Lipase 59 Units/L (11-82); Total Protein 7.3 g/dL (6.4-8.9); Troponin I < 0.03 ng/mL (< 0.04)
[2021-09-06 13:28] LABS: Bilirubin,Urine Negative (Negative); Blood,Urine Small (Negative); Clarity,Urine Clear (Clear); Color,Urine Yellow (Yellow); Glucose,Urine (UA) Normal (Normal); Ketones,Urine Negative (Negative); Leukocyte Esterase,Urine Moderate (Negative); Nitrite,Urine Negative (Negative); PH,Urine >=9.0 pH Units (5.0-8.0); Protein,Urine 100 mg/dL (Neg-Trace); Urobilinogen,Urine Normal (Normal)
[2021-09-06 13:38] LABS: Amphetamine Screen,Urine Negative ng/mL (Cutoff=1000); Barbiturate Screen,Urine Negative ng/mL (Cutoff=200); Benzodiazepines Screen,Urine Negative ng/mL (Cutoff=200); Cannabinoid Screen,Urine Negative ng/mL (Cutoff = 50); Cocaine Screen,Urine Negative ng/mL (Cutoff= 300); Opiate Screen,Urine Negative ng/mL (Cutoff=300); Phencyclidine Screen,Urine Negative ng/mL (Cutoff=25)
[2021-09-06 13:42] LABS: Bacteria,Urine Moderate per hpf (None-Few); Hyaline Casts,Urine Few per lpf (None Seen); Mucus,Urine Few per lpf (None-Few); RBC,Urine 0-3 per hpf (0-3)
[2021-09-06] MEDS ORDERED: Naloxone 0.4 MG/ML INJ IVP PRN (14:21)
[2021-09-06] MEDS ORDERED: Acetaminophen 325 MG TABLET PO PRN (14:21)
[2021-09-06] MEDS ORDERED: Ondansetron 4 MG/2 ML VIAL IVP PRN (14:21)
[2021-09-06] MEDS: Azithromycin 500 MG in 0.9 % Sodium Chloride 250 ML IVPB SCH (14:45)
[2021-09-06] MEDS ORDERED: Dextrose Gel 15 GM/37.5 ML TUBE PO PRN ×2 (15:18)
[2021-09-06] MEDS ORDERED: *HR* Dextrose 50 % in Water (Syg) 50 ML SYRINGE IVP PRN (15:18)
[2021-09-06] MEDS ORDERED: D5% in Water 1,000 ML IVC PRN (15:18)
[2021-09-06] MEDS ORDERED: Ipratropium/Albuterol Neb 3 ML IH PRN (15:24)
[2021-09-06] MEDS ORDERED: MOM Conc 10 ML UD.LIQ PO PRN (15:25)
[2021-09-06] MEDS ORDERED: *HR* LORazepam 0.5 MG TABLET PO PRN (15:25)
[2021-09-06] MEDS ORDERED: Sennosides/Docusate Sodium TABLET PO PRN (15:25)
[2021-09-06] MEDS: 0.9 % Sodium Chloride 1,000 ML IVC SCH (16:07)
[2021-09-06] MEDS: *HR* Heparin 5,000 UNIT/ML VIAL SQ SCH (16:42)
[2021-09-07] MEDS: QUEtiapine Fumarate 100 MG TABLET PO SCH ×2 (00:15→20:18)
[2021-09-07] MEDS: Gabapentin 300 MG CAPSULE PO SCH ×3 (00:15→20:18)
[2021-09-07] MEDS: *HR* Heparin 5,000 UNIT/ML VIAL SQ SCH ×2 (06:03→17:55)
[2021-09-07] MEDS: 0.9 % Sodium Chloride 1,000 ML IVC SCH ×2 (06:10→20:36)
[2021-09-07 07:37] LABS: Hematocrit 32.6 % (35.3-44.9); Hemoglobin 9.9 g/dL (11.5-15.4); Mean Corpuscular HGB Conc 30.4 g/dL (31.6-35.5); Mean Corpuscular Hemoglobin 26.7 pg (28.0-33.3); Mean Corpuscular Volume 87.9 fL (83.0-100.0); Mean Platelet Volume 11.9 fL (9.4-12.4); Platelet Count 195 K/mcL (140-400); Red Blood Count 3.71 M/mcL (3.82-4.97); White Blood Count 12.1 K/mcL (4.3-11.1)
[2021-09-07 07:50] LABS: Calcium 9.2 mg/dL (8.6-10.3); Magnesium 1.7 mg/dL (1.6-2.6); Potassium 3.2 mEq/L (3.5-5.1)
[2021-09-07] MEDS: Metoprolol XL (24 HR) Succ 50 MG TAB.ER.24H PO SCH (08:40)
[2021-09-07] MEDS: cefTRIAXone 2,000 MG in 0.9 % Sodium Chloride Mini Bag 100 ML IVPB SCH (08:41)
[2021-09-07] MEDS: amLODIPine 5 MG TABLET PO SCH (08:41)
[2021-09-07] MEDS: Cholecalciferol (D-3) 1,000 UNIT (25MCG) TABLET PO SCH (09:00)
[2021-09-07 09:51] LABS: ABG Base Excess 1 mEq/L (-2 to 3); ABG HCO3 25 mEq/L (21-27); ABG Oxygen Saturation 87 % (95-98); ABG PCO2 35 mmHg (35-45); ABG PH 7.46 pH Units (7.32-7.45); ABG PO2 49 mmHg (85-104); ABG TCO2 26 mEq/L (20-26)
[2021-09-07] MEDS: Azithromycin 500 MG in 0.9 % Sodium Chloride 250 ML IVPB SCH (15:08)
[2021-09-08] MEDS: *HR* Heparin 5,000 UNIT/ML VIAL SQ SCH ×2 (05:43→17:01)
[2021-09-08 06:46] LABS: Hematocrit 32.4 % (35.3-44.9); Hemoglobin 9.9 g/dL (11.5-15.4); Mean Corpuscular HGB Conc 30.6 g/dL (31.6-35.5); Mean Corpuscular Hemoglobin 26.8 pg (28.0-33.3); Mean Corpuscular Volume 87.8 fL (83.0-100.0); Platelet Count 177 K/mcL (140-400); Red Blood Count 3.69 M/mcL (3.82-4.97); White Blood Count 9.2 K/mcL (4.3-11.1)
[2021-09-08 07:27] LABS: BUN/Creatinine Ratio 27 (6-26); Blood Urea Nitrogen 27 mg/dL (8-23); Calcium 8.7 mg/dL (8.6-10.3); Carbon Dioxide 23 mEq/L (23-29); Chloride 106 mEq/L (98-107); Glucose 177 mg/dL (70-105); Osmolality,Calculated 295 (280-300); Sodium 138 mEq/L (136-145); eGFR For African Americans > 60 (> 60); eGFR For Non-African Americans 54 (> 60)
[2021-09-08] MEDS: cefTRIAXone 2,000 MG in 0.9 % Sodium Chloride Mini Bag 100 ML IVPB SCH (08:20)
[2021-09-08] MEDS: amLODIPine 5 MG TABLET PO SCH (08:22)
[2021-09-08] MEDS: Metoprolol XL (24 HR) Succ 50 MG TAB.ER.24H PO SCH (08:23)
[2021-09-08] MEDS: Gabapentin 300 MG CAPSULE PO SCH ×2 (08:23→20:09)
[2021-09-08] MEDS: Cholecalciferol (D-3) 1,000 UNIT (25MCG) TABLET PO SCH (08:26)
[2021-09-08] MEDS: Budesonide/Formoterol 160/4.5 1 PUFF INH IH SCH ×2 (08:58→22:26)
[2021-09-08] MEDS: MethylPREDNISolone 40 MG/ML VIAL IVP SCH ×2 (09:01→15:47)
[2021-09-08] MEDS: Azithromycin 500 MG in 0.9 % Sodium Chloride 250 ML IVPB SCH (15:47)
[2021-09-08] MEDS: QUEtiapine Fumarate 100 MG TABLET PO SCH (20:08)
[2021-09-09] MEDS: MethylPREDNISolone 40 MG/ML VIAL IVP SCH ×3 (00:09→17:21)
[2021-09-09] MEDS: *HR* Heparin 5,000 UNIT/ML VIAL SQ SCH ×2 (05:34→16:54)
[2021-09-09 07:37] LABS: Hematocrit 27.6 % (35.3-44.9); Hemoglobin 8.6 g/dL (11.5-15.4); Mean Corpuscular HGB Conc 31.2 g/dL (31.6-35.5); Mean Corpuscular Hemoglobin 26.3 pg (28.0-33.3); Mean Corpuscular Volume 84.4 fL (83.0-100.0); Platelet Count 205 K/mcL (140-400); Red Blood Count 3.27 M/mcL (3.82-4.97); Red Cell Distribution Width 13.9 % (11.5-14.5); White Blood Count 11.2 K/mcL (4.3-11.1)
[2021-09-09 07:49] LABS: BUN/Creatinine Ratio 33 (6-26); Blood Urea Nitrogen 34 mg/dL (8-23); Calcium 9.1 mg/dL (8.6-10.3); Carbon Dioxide 19 mEq/L (23-29); Chloride 105 mEq/L (98-107); Glucose 369 mg/dL (70-105); Osmolality,Calculated 305 (280-300); Potassium 3.3 mEq/L (3.5-5.1); Sodium 136 mEq/L (136-145); eGFR For African Americans > 60 (> 60); eGFR For Non-African Americans 52 (> 60)
[2021-09-09] MEDS: Metoprolol XL (24 HR) Succ 50 MG TAB.ER.24H PO SCH (09:08)
[2021-09-09] MEDS: amLODIPine 5 MG TABLET PO SCH (09:09)
[2021-09-09] MEDS: Gabapentin 300 MG CAPSULE PO SCH ×2 (09:09→20:30)
[2021-09-09] MEDS: Cholecalciferol (D-3) 1,000 UNIT (25MCG) TABLET PO SCH (09:11)
[2021-09-09] MEDS: Insulin LISPRO 300 UNITS/3 ML VIAL SUBQ SCH ×3 (09:14→16:53)
[2021-09-09] MEDS: cefTRIAXone 2,000 MG in 0.9 % Sodium Chloride Mini Bag 100 ML IVPB SCH (09:15)
[2021-09-09] MEDS: Budesonide/Formoterol 160/4.5 1 PUFF INH IH SCH ×2 (09:39→23:26)
[2021-09-09] MEDS ORDERED: D5% in Water 1,000 ML IVC PRN (13:51)
[2021-09-09] MEDS ORDERED: Dextrose Gel 15 GM/37.5 ML TUBE PO PRN ×2 (13:51)
[2021-09-09] MEDS ORDERED: *HR* Dextrose 50 % in Water (Syg) 50 ML SYRINGE IVP PRN (13:51)
[2021-09-09] MEDS ORDERED: MethylPREDNISolone 40 MG/ML VIAL IVP SCH (16:00)
[2021-09-09] MEDS: Azithromycin 500 MG in 0.9 % Sodium Chloride 250 ML IVPB SCH (16:48)
[2021-09-09] MEDS: QUEtiapine Fumarate 100 MG TABLET PO SCH (20:30)
[2021-09-09] MEDS ORDERED: Insulin LISPRO 300 UNITS/3 ML VIAL SUBQ SCH (21:00)
[2021-09-10] MEDS: MethylPREDNISolone 40 MG/ML VIAL IVP SCH ×3 (00:23→14:05)
[2021-09-10] MEDS: *HR* Heparin 5,000 UNIT/ML VIAL SQ SCH (06:50)
[2021-09-10 07:10] LABS: Basophils % 0.2 %; Hematocrit 26.6 % (35.3-44.9); Hemoglobin 8.1 g/dL (11.5-15.4); Immature Granulocytes % 1.7 % (0-4); Lymphocytes # 0.6 K/mcL (0.6-4.6); Lymphocytes % 5.6 %; Mean Corpuscular HGB Conc 30.5 g/dL (31.6-35.5); Mean Corpuscular Hemoglobin 26.4 pg (28.0-33.3); Mean Corpuscular Volume 86.6 fL (83.0-100.0); Monocytes # 0.4 K/mcL (0.0-1.3); Monocytes % 3.7 %; Neutrophils # 9.3 K/mcL (1.6-8.9); Platelet Count 225 K/mcL (140-400); Red Blood Count 3.07 M/mcL (3.82-4.97); Red Cell Distribution Width 14.2 % (11.5-14.5); Segmented Neutrophils % 88.8 %; White Blood Count 10.5 K/mcL (4.3-11.1)
[2021-09-10 07:34] VITALS: BP 146/89; PULSE 102; RESP 18; TEMP 98.1
[2021-09-10 07:44] LABS: BUN/Creatinine Ratio 38 (6-26); Blood Urea Nitrogen 38 mg/dL (8-23); Calcium 8.9 mg/dL (8.6-10.3); Carbon Dioxide 22 mEq/L (23-29); Chloride 109 mEq/L (98-107); Glucose 280 mg/dL (70-105); Magnesium 1.7 mg/dL (1.6-2.6); Osmolality,Calculated 311 (280-300); Potassium 3.8 mEq/L (3.5-5.1); Sodium 141 mEq/L (136-145); eGFR For African Americans > 60 (> 60); eGFR For Non-African Americans 54 (> 60)
[2021-09-10] MEDS: Metoprolol XL (24 HR) Succ 50 MG TAB.ER.24H PO SCH (08:08)
[2021-09-10] MEDS: Gabapentin 300 MG CAPSULE PO SCH (08:08)
[2021-09-10] MEDS: amLODIPine 5 MG TABLET PO SCH (08:09)
[2021-09-10] MEDS: cefTRIAXone 2,000 MG in 0.9 % Sodium Chloride Mini Bag 100 ML IVPB SCH (08:09)
[2021-09-10] MEDS: Cholecalciferol (D-3) 1,000 UNIT (25MCG) TABLET PO SCH (08:10)
[2021-09-10] MEDS: Insulin LISPRO 300 UNITS/3 ML VIAL SUBQ SCH ×2 (08:12→13:34)
[2021-09-10] MEDS: Budesonide/Formoterol 160/4.5 1 PUFF INH IH SCH (09:29)
[2021-09-10 09:31] VITALS: O2SAT 96
[2021-09-10] MEDS: Azithromycin 500 MG in 0.9 % Sodium Chloride 250 ML IVPB SCH (14:05)
== END 2021-09-10 14:05 | DRG 193 ==
LOC: INPPIK 12:24 → EMEROOPIK 12:24 → INPPIK 15:00
PROVIDERS: ADMIT Family Medicine; ATTEND Family Medicine